=== PATIENT | male | born 1945 | race Caucasian/White ===

== ENCOUNTER 2018-10-28 01:08 | Inpatient (IN) | payer OTHER ==
[2018-10-28] MEDS ORDERED: NS 1,000 ML IV ONE (01:15)
--- NOTE | 2018-10-28 01:16 | EDPHY ---
H & P Time Seen by Provider: 10/28/18 01:16 HPI/ROS: HPI CHIEF COMPLAINT: Chest pain. HISTORY OF PRESENT ILLNESS: Patient is a 73-year-old male, history of coronary artery disease with 2 stents in his LAD, he states he has replaced in 2001. Has a history of hypertension hyperlipidemia , obesity, does not smoke, presents emergency room with chest discomfort. He describes an achy sensation substernal. Nonradiating. However he does also report some bilateral arm discomfort intermittently. He states he has had some chest discomfort intermittently over the past 4 days. It got worse tonight. He arrives to the emergency room by private vehicle with his . He is complaining of 1/10 substernal chest discomfort. Denies any shortness of breath or pleuritic pain, denies focal numbness or tingling at this time. Denies back pain neck pain or arm pain, denies abdominal pain. Patient did take 2 nitroglycerin prior to arrival. Past Medical History: Significant medical history for coronary disease, hypertension, hyperglycemia Past Surgical History: Coronary disease with stents. Social History: Denies drugs alcohol tobacco. Family History: Noncontributory ROS REVIEW OF SYSTEMS: 10 Systems were reviewed and negative with the exception of the elements mentioned in the history of present illness. Exam Constitutional triage nursing summary reviewed, vital signs reviewed, awake/ alert. Eyes normal conjunctivae and sclera, EOMI, PERRLA. HENT normal inspection, atraumatic, moist mucus membranes, no epistaxis, neck supple/ no meningismus, no raccoon eyes. Respiratory clear to auscultation bilaterally, normal breath sounds, no respiratory distress, no wheezing. Cardiovascular rate normal, regular rhythm, no murmur, no edema, distal pulses normal. Gastrointestinal soft, non-tender, no rebound, no guarding, normal bowel sounds, no distension, no pulsatile mass. Genitourinary no CVA tenderness. Musculoskeletal no midline vertebral tenderness, full range of motion, no calf swelling, no tenderness of extremities, no meningismus, good pulses, neurovascularly intact. Skin pink, warm, & dry, no rash, skin atraumatic. Neurologic awake, alert and oriented x 3, AAOx3, moves all 4 extremities equally, motor intact, sensory intact, CN II-XII intact, normal cerebellar, normal vision, normal speech. Psychiatric normal mood/affect. Heme/Lymph/Immune no lymphadenopathy. Differential Diagnosis: Differential diagnosis includes but is not limited to: ACS, atypical chest pain, pneumothorax, pneumonia, pulmonary embolism, aortic dissection, congestive heart failure, tumor, musculoskeletal pain, esophageal pain, GERD, peptic ulcer disease, pancreatitis Medical Decision Making: Plan for this patient IV establishment with monitoring and evaluation advisor, obtain troponin, EKG, chest x-ray, labs, nitroglycerin to see if I can get him chest pain-free. Re-evaluation: EKG interpretation by me on record in [employer] system. Impression time of EKG 1:21 a.m. Sinus rhythm rate of 65 appear interval is noted to be 203, there is subtle ST depression V4 V5 V6 with T-wave abnormalities present there. Also T-wave inversion in 1 in aVL. There is no ST elevation. Q-waves V1 V2. When I compare this to his old EKG dated 01/06/2012 these are new changes. Point of care troponin is noted to be positive at 0.54. Given the patient's chest discomfort, ischemic EKG and positive troponin I have contacted cardiology spoke with Dr. Levin, agrees with heparin drip at this time. Will try to get the patient completely chest pain-free. If unable to do so will plan on intervention. 0159: Spoke with Dr. Moreno. Discussed case in detail. Plan for cardiac catheterization. He would like me to activate the cardiac catheterization team. Critical Care: Total Critical Care Time Spent Managing this Patient: 65 Minutes. This time was spent Exclusively with this patient. This Care was exclusive of procedures. The Organ System/life at risk was cardiac This Patient was in Critical Condition because NSTEMI Source: Patient Constitutional: Initial Vital Signs Temperature (C) 36.5 C 10/28/18 01:14 Heart Rate 61 10/28/18 01:14 Respiratory Rate 16 10/28/18 01:14 Blood Pressure 148/89 H 10/28/18 01:14 O2 Sat (%) 95 10/28/18 01:14 O2 Delivery Mode Room Air Allergies/Adverse Reactions: carvedilol [From Coreg] Allergy (Severe, Verified 10/28/18 08:57) Rash olmesartan [From Benicar] Allergy (Verified 10/28/18 08:57) Rash Home Medications: Medication Instructions Recorded Aspirin [Aspirin 325 mg (*)] 325 mg PO HS 01/06/12 Multivitamins [Multivitamin (*)] 1 each PO DAILY 01/06/12 Tiona-3 Fatty Acids [Fish Oil 1000 1,000 mg PO DAILY 01/06/12 mg (*)] Allopurinol [Allopurinol 300 MG 300 mg PO DAILY 10/28/18 (RX)] Labetalol HCl [Trandate 100 mg (*)] 100 mg PO BID 10/28/18 Nitroglycerin [Nitrostat 0.4 mg 0.4 mg SL Q5M PRN 10/28/18 (*)] Potassium Cl [Klor-Con 20 meq (*)] 40 meq PO BID 10/28/18 Pravastatin Sodium 40 mg PO HS 10/28/18 Valsartan/Hydrochlorothiazide 1 each PO DAILY 10/28/18 [Valsartan-Hctz 160-25 mg Tab] Prasugrel HCl [Effient 10mg (*)] 10 mg PO DAILY #30 tab 10/29/18 amLODIPine BESYLATE [Norvasc 5 mg 5 mg PO DAILY tab 10/29/18 (*)] Medical Decision Making - Data Points Laboratory Results: Laboratory Results 10/28/18 01:25 10/28/18 01:25 Medications Given: Discontinued Medications Amlodipine Besylate (Norvasc) 5 mg PO DAILY [facility] Stop: 04/26/19 08:59 Last Admin: 10/29/18 08:18 Dose: 5 mg Aspirin Buffered (Aspirin Ec) 325 mg PO DAILY [facility] Stop: 04/26/19 08:59 Last Admin: 10/28/18 08:46 Dose: Not Given Aspirin Buffered (Aspirin Ec) 325 mg PO HS ANGELA Stop: 04/26/19 20:59 Last Admin: 10/28/18 21:00 Dose: 325 mg Atorvastatin Calcium (Lipitor) 20 mg PO DAILY [facility] Stop: 04/26/19 08:59 Last Admin: 10/28/18 08:46 Dose: Not Given Atorvastatin Calcium (Lipitor) 20 mg PO HS [facility] Stop: 04/26/19 20:59 Last Admin: 10/28/18 20:59 Dose: 20 mg Heparin Sodium (Porcine) (Heparin Injection) 0 unit IVP EDNOW ONE Stop: 10/28/18 01:42 Last Admin: 10/28/18 02:05 Dose: 4,000 units Sodium Chloride (Ns) 1,000 mls @ 0 mls/hr IV EDNOW ONE; Wide Open PRN Reason: Protocol Stop: 10/28/18 01:16 Last Admin: 10/28/18 01:26 Dose: 1,000 mls Heparin Sodium (Porcine) (Heparin 50 Units/Ml (Premix)) 500 mls @ 0 mls/hr IV EDNOW ONE; Per Protocol PRN Reason: Protocol Stop: 10/28/18 01:42 Last Admin: 10/28/18 02:06 Dose: 500 mls Sodium Chloride (Ns) 1,000 mls @ 100 mls/hr IV CONT [facility]GELA Stop: 10/28/18 13:59 Last Admin: 10/28/18 05:01 Dose: 1,000 mls Labetalol HCl (Trandate) 200 mg PO HS ANGELA Stop: 04/26/19 20:59 Last Admin: 10/28/18 21:00 Dose: 200 mg Morphine Sulfate (Morphine) 4 mg IVP EDNOW ONE Stop: 10/28/18 01:45 Last Admin: 10/28/18 01:46 Dose: Not Given Nitroglycerin (Nitrostat) 0.4 mg SL EDNOW ONE Stop: 10/28/18 01:25 Last Admin: 10/28/18 01:29 Dose: 1 tab [id number] Ethyl Esters (Fish Oil) 1,000 mg PO DAILY [facility] Stop: 04/26/19 08:59 Last Admin: 10/29/18 08:18 Dose: 1,000 mg Potassium Chloride (Klor-Con) 40 meq PO ONCE ONE Stop: 10/28/18 16:01 Last Admin: 10/28/18 16:04 Dose: 40 meq Prasugrel (Effient) 10 mg PO DAILY [facility] Stop: 04/27/19 08:59 Last Admin: 10/29/18 08:19 Dose: 10 mg Prasugrel (Effient) 60 mg PO ONCE ONE Stop: 10/28/18 03:51 Last Admin: 10/28/18 04:44 Dose: Not Given Valsartan (Diovan) 40 mg PO BID [facility] Stop: 04/26/19 08:59 Last Admin: 10/29/18 08:18 Dose: 40 mg Point of Care Test Results: Chemistry 10/28/18 10/28/18 01:55 01:27 POC Troponin I 0.50 ng/mL H ng/mL 0.53 ng/mL H ng/mL (0.00-0.08) (0.00-0.08) Departure - Departure Disposition: [facility] Inpatient Acute Clinical Impression: NSTEMI (non-ST elevated myocardial infarction) Condition: Fair
[2018-10-28] MEDS ORDERED: NITROGLYCERIN 0.4 MG BTL SL ONE (01:24)
[2018-10-28] MEDS ORDERED: ASPIRIN 81 MG CHEWABLE TAB ONE (01:28)
[2018-10-28] MEDS ORDERED: HEPARIN/DEXTROSE 500 ML IV ONE (01:41)
[2018-10-28] MEDS ORDERED: HEPARIN 10,000 UNIT/10 ML MDV (1,000 UNIT/ML) IVP ONE (01:41)
[2018-10-28 01:49] LABS: PLATELET COUNT 260 10^3/uL (150-400)
[2018-10-28 01:57] LABS: PROTIME(PATIENT) 12.8 SEC (12.0-15.0)
[2018-10-28] MEDS ORDERED: LIDOCAINE 1% 300 MG/30 ML SDV ONE (02:20)
[2018-10-28] MEDS ORDERED: MIDAZOLAM 2 MG/2 ML VIAL ONE ×2 (02:21→02:59)
[2018-10-28] MEDS ORDERED: VERAPAMIL 5 MG/2 ML VIAL ONE (02:21)
[2018-10-28] MEDS ORDERED: IOPAMIDOL (ISOVUE-370) 150 ML BTL IV ONE ×2 (02:21→03:21)
[2018-10-28] MEDS ORDERED: fentaNYL 100 MCG/2 ML INJ ONE ×2 (02:21→02:59)
[2018-10-28] MEDS ORDERED: HEPARIN 10,000 UNIT/10 ML MDV (1,000 UNIT/ML) ONE (02:21)
--- NOTE | 2018-10-28 02:38 | PDPROPOC ---
Sedation Plan of Care Sedation Plan of Care: vital signs stable, mental status noted, patient educated of risks, benefits, alternatives, patient can tolerate sedation ASA Classification: ASA 3 Planned drugs: fentanyl, midazolam Mallampati Score: Class 3 Mallampati Reference Image: Patient passed 3-3-2 rule?: No
--- NOTE | 2018-10-28 02:38 | PDHPUP ---
History & Physical Update H&P update statement: This history and physical update is based on an assessment of the patient which was completed after admission or registration (within 24 hours), but prior to the surgery/procedure. H&P update: H&P reviewed & patient examined, no change in patient's condition since H&P completed
[2018-10-28] MEDS ORDERED: EPINEPHrine 1 MG/10 ML SYR IVP ONE (02:42)
[2018-10-28] MEDS ORDERED: ATROPINE SULFATE 1 MG/10 ML SYR ONE (02:42)
[2018-10-28] MEDS ORDERED: PRASUGREL HCL 10 MG TAB ONE (03:50)
[2018-10-28] MEDS ORDERED: NITROGLYCERIN 0.4 MG BTL SL PRN (03:50)
[2018-10-28] MEDS ORDERED: HYDROCODONE/APAP 5/325 TAB PO PRN (03:50)
[2018-10-28] MEDS ORDERED: TEMAZEPAM 15 MG CAP PO PRN (03:50)
[2018-10-28] MEDS ORDERED: PRASUGREL HCL 10 MG TAB PO ONE (03:50)
[2018-10-28] MEDS ORDERED: LORazepam 2 MG/ML INJ IVP PRN (03:50)
[2018-10-28] MEDS ORDERED: ATROPINE SULFATE 1 MG/10 ML SYR IVP PRN (03:50)
[2018-10-28] MEDS ORDERED: OXYCODONE/APAP 5/325 TAB PO PRN (03:50)
[2018-10-28] MEDS ORDERED: ONDANSETRON 4 MG/2 ML VIAL IVP PRN (03:50)
--- NOTE | 2018-10-28 03:57 | GHP ---
[f rep st] HISTORY AND PHYSICAL DATE OF ADMISSION: 10/28/2018 CHIEF COMPLAINT: Chest discomfort. HISTORY OF PRESENT ILLNESS: The patient is a 73-year-old male with a history of coronary disease and 2 stents to the LAD placed by me in 2001. He has a history of hypertension, dyslipidemia. He has n ot abused alcohol or illicit drugs. He does not smoke. He presented to the emergency department for chest discomfort. He describes an achy sensation in his substernal region, which is specifically no t pain, but seems to go into his bilateral arms and cause radiation into the inner aspects of both of his arms. He has had chest discomfort intermittently over the past 4 days. The pain was bad enough to see me. He was unable to go to sleep. He arrived at the emergency room by private vehicle with his driving. He complained of 1/10 substernal chest discomfort. He did not admit to nausea, vo miting, diaphoresis, or other symptoms. He took 2 nitroglycerins prior to his arrival and then [facility] er 1 was administered once he arrived in the emergency department. PAST MEDICAL HISTORY: Significant for coronary artery disease, status post stenting, hypertension, a nd dyslipidemia. He also has a history of fasting hyperglycemia. SOCIAL HISTORY: Pertinent for the fact that he does not abuse alcohol, illicit drugs, or tobacco. FAMILY HISTORY: Noncontributory. REVIEW OF SYSTEMS: A 10-point review of systems was reviewed and negative with the exception of the elements mentioned above. PHYSICAL EXAMINATION: The patient's vital signs revealed a blood pressure of 103/60, heart rate of 7 2, respirations 16 unlabored, saturation of 91%. The neck reveals no JVD or carotid bruits. I do no t appreciate thyromegaly on his neck exam. Heart reveals normal S1 and S2 with a faint systolic grad e 1/6 systolic murmur which does not radiate to his neck or carotids. He does not have a summation g allop. The lungs are clear to auscultation bilaterally without wheezes, rales or rhonchi. His abdom en is obese, with positive bowel sounds. It is nondistended and nontender. He does have a central d iastasis when he tries to lift his head from a supine position. His extremities are warm and dry wit h chronic venous stasis changes and at least 2+ peripheral edema. MEDICATIONS: His current medications include the previously mentioned sublingual nitroglycerin, aspi rin 325 mg, labetalol, Trandate 200 mg p.o. at bedtime, omega-3 fatty acids 1000 mg daily, Zocor 40 m g daily, amlodipine 5 mg daily, and Diovan 40 mg daily. ALLERGIES: He is known to be allergic or to have an adverse reaction to carvedilol. LABORATORY STUDIES: Reveal a sodium 140, potassium 3.6, BUN and creatinine of 30 and 1.5 with a gluc ose of 167. The H and H are 14.7 and 43.3 with a white count of 8.35, platelet count is 260. A poin t of care troponin is 0.5 and repeated was found to be 0.53. Internal proBNP level is 226. The katey ent's EKG reveals normal sinus rhythm with nonspecific ST-T abnormality, specifically minimal and les s than 3 mm inversions in V4, V5, and V6. This is new compared to a prior EKG. He does have anteros eptal Q-waves in V1 and V2 with marginal repolarization changes. IMPRESSION/PLAN: The patient has a history of coronary disease, status post stenting, has had stutte ring anginal quality chest discomfort, most consistent with unstable angina with CCS class 4 angina a s well given the patient is having symptoms at rest. The patient did undergo evaluation with a chest x-ray in the emergency department, which has not yet been interpreted. It is a portable examination and appears to be somewhat underpenetrated, however, his heart is the upper limits of normal in size with fairly plethoric pulmonary vessels. This was interpreted by me. The patient should be taken to the cardiac catheterization laboratory for definitive evaluation of hi s coronary anatomy given the nature of his illness, his intractable discomfort in spite of sublingual nitroglycerin, both on the way here and after his arrival to the hospital as well as his ischemic lo oking EKG and the point of care troponin elevations. I have discussed the risks, benefits, and alter natives of this course of action with the patient and his , who understand and willing to proceed as planned. They are aware that this is an invasive procedure that could lead to the patient's deat h, a permanent disabling stroke or heart attack. However, we do believe he has a threatened myocardi al injury at the present time and therefore it is deemed appropriate to proceed with an invasive eval uation of the patient's current coronary status. Copy requested to: VINICIO /[id number]
[2018-10-28] MEDS ORDERED: NS 1,000 ML IV SCH (04:00)
--- NOTE | 2018-10-28 04:09 | PDDXCAT ---
Diagnostic Cath Note - . Date: 10/28/18 [employer] Driver: Josh Indication: CCC Class III and IV angina on medical treatment, other ( Subendocardial NV with unstable angina) - Procedure Access: right groin Procedure: left heart catheterization, coronary angiography, left ventriculogram , other (Stent of codominant left circumflex with 4 X 20 Syndergy JOHN and mid RCA with a 2.75X28 Synergy JOHN) - Findings-Left Heart Catheterization LM: Short and 6mm in size trifurcates into LAD, co dominant left circumflex and ramus intermedius vessel. Irregularities consistent with atherosclerosis max luminal stenosis is 20-30%. LISSY III flow. LAD: 3.25 mm in size proximally with diffuse proximal disease maximal luminal stenosis is 60% at the level of a septal takeoff. A 2.5 mm diagonal is free of flow limiting disease. The LAD thereafter has been previously stented with 2 overlapping stents and the stents are widely patent without significant flow limiting obstruction. LISSY III flow to distal vessel. LCX: The left circumflex is co dominant and large approximately 4 mm in size with a thrombotic 95% stenosis of the vessel proximally with LISSY II flow to the vessel distally. RCA: Codominant vessel 2.75 in size with LISSY III flow but an 80% lesion of the RCA proper just proximal to a large 2.75 acute marginal vessel. Ramus: Small vessel and devoid of flow limiting obstruction. LISSY III flow. EDP: 36mmHg LVEF: 45-50 % Wall motion: Basal inferior hypokinesis otherwise normal wall motion. Complications: NONE Estimated blood loss: <50ml Closure method: Angioseal Assessment: Severe [place] vessel CAD with subtotal thrombotic 95% proximal obstruction of a codominant left circumflex (infarct related vessel) and 80% mid RCA lesion also a co dominant vessel. Patient with [place] vessel progression in LAD not thought to be flow limiting at present. Proceeded with acute subendocardial myocardial infarction intervention see below. Plan: The patient will be admitted overnight where a fasting lipid profile and glucose will be obtained. Troponin levels will be trended. Serial EKGs will be obtained. The patient will require dual antiplatelet therapy for at least 1 year post stent implantation and is placed on ASA 325mg daily and Effient 10 mg daily initially. The ASA dose can be reduced to 81 mg after the first month and should be continued indefinitely. His non HDL cholesterol should be treated to a level of less than 100mg/dL and the LDL cholesterol to less than 100mg/dL as well. The Simvastatin the patient is taking can interact with Trandate at the 40mg dose and may require adjustment or that it be changed. If he is found to have true diabetes he may benefit from a modern regimen to reduce fasting glucose. Intervention: A 6 Swedish 3.5 EBU catheter was used for catheter support. A 0.014 Intuition wire was advanced past the 95% thrombotic lesion in the proximal left circumflex. The vessel was primarily stented with a 4 X 20 Synergy drug eluting stent. Excellent and LISSY III flow was established post stent implantation. 0% residual stenosis was noted post stent implantation. ACT was documented and Heparin dosing was adjusted with boluses during the case to get ACT above 200 seconds. A 6 Swedish JR4 guiding catheter was used for catheter support and manipulated with care into the ostium of the RCA. A 0.014 Intuition wire was advanced across the 80% lesion in the mid RCA and placed into the acute marginal branch distal to the lesion. A second 0.014 Intuition wire was advanced across the lesion and placed into the distal RCA. The lesion and bifurcation were primarily ballooned with serial inflations on each of the wires with the use of a 2.5 Emerge angioplasty balloon. The acute marginal was ballooned with a 2.75 Emerge balloon to try to achieve an ostial stenosis of less than 10 %. The acute marginal wire was then removed and the RCA proper was stented across the origin of the acute marginal vessel with a 2.75 X 28 Synergy drug eluting stent. 0% residual stenosis of RCA 10% ostial stenosis of large acute marginal branch (Jailed by RCA stent.) LISSY III flow pre and post stent implantation. Patient Problems: Problems Problem Status Onset Pneumonia Active Benign hypertension Active NSTEMI (non-ST elevated myocardial infarction) Acute
[2018-10-28 06:18] LABS: PLATELET COUNT 228 10^3/uL (150-400)
[2018-10-28] MEDS: OMEGA-3 FATTY ACIDS 1,000 MG CAP PO SCH (08:45)
[2018-10-28] MEDS: VALSARTAN 40 MG TAB PO SCH ×2 (08:46→20:59)
[2018-10-28] MEDS: amLODIPine BESYLATE 5 MG TAB PO SCH (08:46)
[2018-10-28] MEDS ORDERED: ASPIRIN EC 325 MG TAB PO SCH ×2 (09:00→21:00)
[2018-10-28] MEDS ORDERED: ATORVASTATIN CALCIUM 20 MG TAB PO SCH ×2 (09:00→21:00)
--- NOTE | 2018-10-28 09:56 | PDMN ---
Medical Necessity Medical necessity: Pt meets inpt criteria per MD order and MCG M-230, Myocardial Infarction, 2 days. 73 y/o w/hx CAD/stents, HTN, and dyslipidemia presented to ED w/chest discomfort radiating to arms, , EKG suggesting ischemia , troponins elevated, consistent w/subendocardial WI w/USA, underwent LHC and coronary angio w/PCI/stent to prox L circumflex artery and mid RCA. Admitted to PCU care for NSTEMI, post-procedural care/monitoring.
--- NOTE | 2018-10-28 13:20 | ASMTCMCOM ---
CM Note CM Note Notes: 10/28/2018 Case Management Note Reviewed chart, discussed with RN. Pt admitted for NSTEMI, had cath last night. There are no therapy evals ordered at this time. Cardiac Rehab consult ordered. There are no case management d/c needs identified d/t pt age, marital status and independence with ADL's prior to admission. Case Management d/c poc: independent with follow up as directed. Case Management available if needs change. Date Signed: 10/28/2018 01:20 PM Electronically Signed By:Talia Stanton RN
--- NOTE | 2018-10-28 14:45 | ECHO ---
[email or web address] [address] Main: [phone] Echocardiography Examination Transthoracic Name: YAMILETH ESPINO MR#: [id number] Study Date: 10/28/2018 Study Time: 10:22 AM Date of : 1945 Age: 73 year(s) Height: 190.5 cm (75 in.) Weight: 121.56 kg (268 lb.) BSA: 2.48 m2 Gender: Male Examination: Echo Contrast: Image Quality: Good Rhythm: Normal sinus rhythm Heart Rate: 81 bpm BP: 146 mmHg/82 mmHg Indication: Post [place] Procedure Staff Referring Physician: Director Of Spa And Guest Experience: Bon Yanez RDCS Reading Physician: Ronnie Moreno MD Requesting Provider: Indication: Post [place] Measurements Chambers AV/MV Label Value Normal Value Label Value Normal Value EF lower range (%) 65 % AV PGmax 16 mmHg EF upper range (%) 70 % AV PGmean 7 mmHg IVSd, 2D 1.5 cm (0.6cm - 1.1cm) AV Vmax, Caliper 1.98 m/s IVSd, MM 1.8 cm (0.6cm - 0.9cm) RAMAN (continuity eq. 2.1 cm2 LVDd, 2D 4.5 cm (4.2cm - 5.9cm) Vmax) LVDd, MM 5.9 cm (4.2cm - 5.9cm) RAMAN D (continuity eq. 2.9 cm2 LVDs, 2D 2.9 cm (2.1cm - 4cm) VTI) LVDs, MM 3.7 cm (2cm - 3.8cm) MV A Vmax 1.11 m/s LVEF, 2D 66 % (54% - 74%) MV E' lateral 0.05 m/s LVEF, MM 67 % (55% - 70%) MV E' mean 0.04 m/s LVOT PGmax 6 mmHg MV E' septal 0.03 m/s LVOT PGmean 3 mmHg MV E Vmax 0.63 m/s LVOT Vmax 1.19 m/s (0.7m/s - 1.1m/s) MV E/A 0.57 LVOT Vmean 0.78 m/s MV E/E' lateral 11.5 LVOTd 2.1 cm (1.9cm - 2.1cm) MV E/E' mean 15.75 LVPWd, 2D 1.5 cm (0.6cm - 1cm) MV E/E' septal 20.1 (0.45 - 1.25) LVPWd, MM 1.6 cm (0.6cm - 1cm) TV/PV RVDd, 2D 2.5 cm (1.9cm - 3.8cm) Label Value Normal Value TAPSE 3 cm PV PGmax 6 mmHg LADs, 2D 4.3 cm (3cm - 4cm) PV Vmax, Caliper 1.18 m/s (0.6m/s - 0.9m/s) Patient: YAMILETH ESPION Study Date: 10/28/2018 Page 1 of 3 10:22 AM LAESV index, MOD2 36.7 ml/m2 RA Area 17.8 cm2 Additional Vessels Label Value Normal Value AoRoot, MM 4.2 cm (2.2cm - 3.7cm) Conclusions The patient has subtle wall motion abnormality indicative of known recent subendocardial myocardial infartion. Left Ventricle: Left ventricle is normal in size. EF range is estimated at 65 % - 70 %. Cannot determine LAP and Diastolic Dysfunction Grade. There is mild concentric left ventricular hypertrophy. There is subtle basal inferior hypokinesis. Left Atrium: The left atrium is mildly dilated. Aortic Valve: Aortic leaflets exhibit mild calcification. Aorta: The aortic root size in M-mode measures 4.2 cm. Aorta Measurements AoRoot, MM is 4.2 cm. Findings Left Ventricle: Left ventricle is normal in size. The ejection fraction, measured by M-mode, is 67 %. EF range is estimated at 65 % - 70 %. Cannot determine LAP and Diastolic Dysfunction Grade. There is mild concentric left ventricular hypertrophy. There is subtle basal inferior hypokinesis. Right Ventricle: Normal size right ventricle. Right ventricular systolic function is normal. Left Atrium: The left atrium is mildly dilated. Right Atrium: The right atrium is normal in size. Right Atrium Measurements RA Area is 17.8 cm2. Aortic Valve: No aortic valve regurgitation. There is no aortic stenosis. Aortic leaflets exhibit mild calcification. The aortic valve is trileaflet. Tricuspid Valve: No tricuspid regurgitation. Pulmonic Valve: No pulmonic valve regurgitation is evident. Aorta: The aortic root size in M-mode measures 4.2 cm. The aortic root exhibits normal size. Aorta Measurements AoRoot, MM is 4.2 cm. Patient: YAMILETH ESPINO Study Date: 10/28/2018 Page 2 of 3 10:22 AM IVC: The inferior vena cava is normal in size. Exam Details Procedure Ordered: Echo Procedure Status: Routine study Image Quality: Good Facility Location: Cardiac Echo 1 (No Signature Object) Patient: YAMILETH ESPINO Study Date: 10/28/2018 Page 3 of 3 10:22 AM [id number]
[2018-10-28] MEDS ORDERED: POTASSIUM CL 20 MEQ TAB PO ONE (16:00)
[2018-10-28] MEDS ORDERED: LABETALOL HCL 200 MG TAB PO SCH (21:00)
[2018-10-29 07:26] VITALS: BP 151/78
[2018-10-29] MEDS: VALSARTAN 40 MG TAB PO SCH (08:18)
[2018-10-29] MEDS: OMEGA-3 FATTY ACIDS 1,000 MG CAP PO SCH (08:18)
[2018-10-29] MEDS: amLODIPine BESYLATE 5 MG TAB PO SCH (08:18)
[2018-10-29] MEDS ORDERED: PRASUGREL HCL 10 MG TAB PO SCH (09:00)
--- NOTE | 2018-10-30 07:53 | CPEKG ---
Test Reason : OPEN Blood Pressure : / mmHG Vent. Rate : 065 BPM Atrial Rate : 066 BPM P-R Int : 203 ms QRS Dur : 102 ms QT Int : 434 ms P-R-T Axes : 022 -12 129 degrees QTc Int : 452 ms Sinus rhythm Anteroseptal infarct, old Repol abnrm suggests ischemia, anterolateral Confirmed by Judd Vera ([id number]) on 10/30/2018 7:52:40 AM Referred By: Judd Vera Confirmed By:Judd Vera
--- NOTE | 2018-10-30 10:30 | GDS ---
[f rep st] DISCHARGE SUMMARY DISCHARGE DIAGNOSES: 1. [id number] myocardial infarction, status post stenting to the proximal left circumflex arter y with a 4 x 20 mm Synergy drug-eluting stent and to the mid right coronary artery with a 2.75 x 28 m m drug-eluting stent. 2. History of coronary artery disease with stenting to the left anterior descending in 2001. 3. Hyperlipidemia. 4. Hypertension. HOSPITAL COURSE: For detailed H and P, please see prior dictation. Briefly, the patient is a 73-yea r-old male with a history of coronary artery disease, status post stenting to the left anterior desce nding artery in 2001. He presented to the hospital with 4 days of stuttering chest discomfort, which radiated into both of his arms. He was unable to sleep the day of admission, therefore, arrived at the emergency room by private vehicle. He complained of 1/10 substernal chest discomfort without any associated nausea, vomiting, or diaphoresis. He took 2 nitroglycerin prior to arrival without any i mprovement in his discomfort. His troponin was elevated on admission at 0.53, and given his ongoing chest discomfort and an abnorma l EKG, the decision was made to proceed with an angiogram. This was performed by Dr. Ronnie Moreno on October 28, 2018. The left main artery had a maximal luminal stenosis of 20% to 30%. The left anteri or descending artery had proximal disease with stenosis of 60% at the level of the septal takeoff. T here are 2 overlapping stents, which were widely patent. The left circumflex artery had a thrombotic 95% stenosis, which was stented with a 4 x 20 mm Synergy drug-eluting stent. The right coronary art ceasar had an 80% lesion of the RCA proper just proximal to a large acute marginal vessel. This was ty nted with a 2.75 x 28 mm Synergy drug-eluting stent. The following morning, the patient denied any chest discomfort or shortness of breath. His groin whe re access was obtained for the angiogram was clean, intact without any evidence of infection or hemat neri. His troponin peaked at 2.53. He was monitored on telemetry and remained in normal sinus rhythm . An echocardiogram the day after his event showed preserved LV function with ejection fraction of 6 5% to 70%. He had mild left ventricular hypertrophy and subtle basal inferior hypokinesis. PHYSICAL EXAMINATION: GENERAL: Patient appears in no acute distress. VITAL SIGNS: Blood pressure 151/78, heart rate 67 beats per minute. Oxygen saturation of 91% on room air, afebrile. LUNGS: Cj ar to auscultation. No wheezes, rhonchi, or crackles auscultated. CARDIAC: Regular rate and rhythm , without any significant murmurs, rubs, or gallops appreciated. EXTREMITIES: No edema bilaterally. Right groin where access was obtained for the angiogram is clean, intact without any evidence of in fection or hematoma. DISCHARGE MEDICATIONS: Effient 10 mg daily, Norvasc 5 mg daily, fish oil 1000 mg daily, multivitamin daily, aspirin 325 mg daily, nitroglycerin p.r.n. for chest pain, allopurinol 300 mg daily, pravasta tin 40 mg at bedtime, Klor-Con 40 mEq b.i.d., labetalol 100 mg p.o. b.i.d., valsartan/hydrochlorothia zide 160/25 mg daily. PLAN: The patient is currently stable and ready for discharge home. He will call our office to [facility] a 1 to 2 week followup visit. He has been given groin precautions. He is aware that he has to remain on aspirin and Effient for a minimum of 1 year. /[id number]/MODL
--- NOTE | 2018-10-31 12:02 | CPEKG ---
Test Reason : OPEN Blood Pressure : / mmHG Vent. Rate : 070 BPM Atrial Rate : 069 BPM P-R Int : 209 ms QRS Dur : 098 ms QT Int : 432 ms P-R-T Axes : 019 -43 130 degrees QTc Int : 467 ms Sinus rhythm Left axis deviation Anteroseptal infarct, old Nonspecific T abnormalities, lateral leads Confirmed by Ronnie Moreno ([id number]) on 10/31/2018 12:02:16 PM Referred By: Ronnie Moreno Confirmed By:Ronnie Moreno
--- NOTE | 2018-10-31 12:05 | CPEKG ---
Test Reason : OPEN Blood Pressure : / mmHG Vent. Rate : 069 BPM Atrial Rate : 068 BPM P-R Int : 170 ms QRS Dur : 092 ms QT Int : 466 ms P-R-T Axes : -07 019 -70 degrees QTc Int : 500 ms Sinus rhythm Low voltage, precordial leads Repol abnrm suggests ischemia, anterolateral Confirmed by Ronnie Moreno ([id number]) on 10/31/2018 12:05:03 PM Referred By: Ronnie Moreno Confirmed By:Ronnie Moreno
--- NOTE | 2018-10-31 18:45 | CPEKG ---
Test Reason : post stenting. Possible wrong lead placement on prior ekg Blood Pressure : / mmHG Vent. Rate : 072 BPM Atrial Rate : 072 BPM P-R Int : 203 ms QRS Dur : 090 ms QT Int : 442 ms P-R-T Axes : 011 -54 -47 degrees QTc Int : 484 ms Sinus rhythm Inferior infarct, age indeterminate Lateral leads are also involved Confirmed by Ronnie Moreno ([id number]) on 10/31/2018 6:44:41 PM Referred By: Ronnie Moreno Confirmed By:Ronnie Moreno
== END 2018-10-29 11:00 | disposition home or self-care (01) | DRG 229 ==
LOC: F2W 04:22
PROVIDERS: ADMIT Internal Medicine Cardiovascular Disease; ATTEND Internal Medicine Cardiovascular Disease
PROC: 4A023N7 Measurement of Cardiac Sampling and Pressure, Left Heart, Percutaneous Approach (ICD-10-PCS; principal; 2018-10-28)
PROC: 027105Z Dilation of Coronary Artery, Two Arteries with Two Drug-eluting Intraluminal Devices, Open Approach (ICD-10-PCS; principal; 2018-10-28)
DX: I21.4 Non-ST elevation (NSTEMI) myocardial infarction (principal); I25.10 Atherosclerotic heart disease of native coronary artery without angina pectoris; E86.9 Volume depletion, unspecified; E78.5 Hyperlipidemia, unspecified; I10 Essential (primary) hypertension; E66.9 Obesity, unspecified; Z95.5 Presence of coronary angioplasty implant and graft
CPT/HCPCS: 84484-ER; 96365; C1725; C1769; C1874; C1887; C9600; C9606; J0461; J1200; J1644; J2250; J2270; J3010; Q9967